=== PATIENT | female | born 1940 | race Two or more races ===

== ENCOUNTER 2016-07-15 23:54 | Emergency (ER) | payer MEDICARE, BC ==
[2016-07-16] MEDS ORDERED: DIPHENHYDRAMINE HCL 25 MG CAPSULE PO ONE (02:07)
[2016-07-16] MEDS ORDERED: FAMOTIDINE 20 MG TABLET PO ONE (02:07)
--- NOTE | 2016-07-16 02:13 | ER Document Report ---
ED General - General Mode of Arrival: Ambulatory Information source: Patient TRAVEL OUTSIDE OF THE [place] IN LAST 30 DAYS: No - HPI Patient complains to provider of: Generalized Body Pain and Facial Swelling Onset: This evening Associated symptoms: Other - see notes above <MARYLOU MCDONALD - Last Filed: 07/16/16 02:07> <SALO JOSHI - Last Filed: 07/16/16 03:34> - General Chief Complaint: Pain All Over Stated Complaint: WHOLE BODY PAIN Time Seen by Provider: 07/16/16 01:55 Notes: 75 year old female with history of diabetes, GERD, hyperlipidemia, and hypertension presents to the ED complaining of generalized body pain and facial swelling (cheek and periorbital) that started this evening (1900) after taking myrbetriq for the first time. Patient reports that symptoms started 1 hour after taking medication. Patient states that she feels like she is "dying", similar to when she had diphtheria as a child. Patient also reports shortness of breath and generalized tingling. (MARYLOU MCDONALD) - Related Data Allergies/Adverse Reactions: iodine [Iodine] Allergy (Severe, Verified 07/16/16 00:12) Hives fentanyl [Fentanyl] Allergy (Unknown, Verified 07/16/16 00:12) Penicillins Allergy (Verified 07/16/16 00:12) Past Medical History - General Information source: Patient - Social History Smoking Status: Unknown if Ever Smoked Chew tobacco use (# tins/day): No Frequency of alcohol use: None Drug Abuse: None Family History: Reviewed & Not Pertinent - Past Medical History Cardiac Medical History: Reports: Hx Hypercholesterolemia, Hx Hypertension Endocrine Medical History: Reports: Hx Diabetes Mellitus Type 2 Renal/ Medical History: Denies: Hx Peritoneal Dialysis GI Medical History: Reports: Hx Gastroesophageal Reflux Disease Musculoskeltal Medical History: Reports Hx Arthritis Past Surgical History: Reports: Hx Cholecystectomy, Hx Hysterectomy - Immunizations Hx Diphtheria, Pertussis, Tetanus Vaccination: No <MARYLOU MCDONALD - Last Filed: 07/16/16 02:07> Review of Systems - Review of Systems Constitutional: See HPI, Other - generalized body pain EENT: See HPI, Other - periorbital and cheek facial swelling Cardiovascular: No symptoms reported Respiratory: See HPI, Short of breath Gastrointestinal: No symptoms reported Genitourinary: No symptoms reported Female Genitourinary: No symptoms reported Musculoskeletal: No symptoms reported Skin: No symptoms reported Hematologic/Lymphatic: No symptoms reported Neurological/Psychological: See HPI, Tingling - generalized -: Yes All other systems reviewed and negative <MARYLOU MCDONALD - Last Filed: 07/16/16 02:07> Physical Exam - General General appearance: Alert In distress: None - HEENT Head: Normocephalic, Atraumatic Eyes: Periorbital edema. No: Normal Extraocular movements intact: Yes Pupils: PERRL - Respiratory Respiratory status: No respiratory distress Breath sounds: Normal - Cardiovascular Rhythm: Regular Heart sounds: Normal auscultation - Abdominal Inspection: Normal Distension: No distension Tenderness: Nontender - Back Back: Normal - Extremities General upper extremity: Normal inspection, Normal ROM General lower extremity: Normal inspection, Normal ROM, Other - Bilateral legs were puffy, but did not pit. - Neurological Neuro grossly intact: Yes - Psychological Associated symptoms: Normal affect, Normal mood - Skin Skin Temperature: Warm Skin Moisture: Dry Skin Color: Normal <MARYLOU MCDONALD - Last Filed: 07/16/16 02:07> - HEENT Conjunctiva: Normal Mouth/Lips: Normal. No: Angioedema Mucous membranes: Normal Neck: Normal <SALO JOSHI - Last Filed: 07/16/16 03:34> - Vital signs Vitals: Temp Pulse Resp BP Pulse Ox 98.7 F 80 20 132/73 H 96 07/16/16 00:12 07/16/16 00:12 07/16/16 00:12 07/16/16 00:12 07/16/16 00:12 Course <MARYLOU MCDONALD - Last Filed: 07/16/16 02:07> - Laboratory Result Diagrams: 07/16/16 02:25 07/16/16 02:25 <SALO JOSHI - Last Filed: 07/16/16 03:34> - Re-evaluation Re-evalutation: 07/16/16 03:31 Patient feels much better at this time, the swelling in the periorbital and malar area of her face appears to be a little bit better. (SALO JOSHI) - Vital Signs Vital signs: Temp Pulse Resp BP Pulse Ox 98.7 F 80 20 132/73 H 96 07/16/16 00:59 07/16/16 00:59 07/16/16 00:59 07/16/16 00:59 07/16/16 00:59 - Laboratory Laboratory results interpreted by me: 07/16/16 07/16/16 07/16/16 02:25 02:25 02:30 Hgb 11.8 L Hct 35.8 L Sodium 133.7 L Chloride 95 L Calcium 10.7 H Urine Ascorbic Acid 40 H Discharge <MARYLOU MCDONALD - Last Filed: 07/16/16 02:07> <SALO JOSHI - Last Filed: 07/16/16 03:34> - Discharge Clinical Impression: Allergic reaction caused by a drug Qualifiers: Encounter type: initial encounter Qualified Code(s): T78.40XA - Allergy, unspecified, initial encounter Condition: Stable Disposition: HOME, SELF-CARE Additional Instructions: Acute Allergic Reaction to Drugs: Your symptoms are due to an allergic reaction. The physician feels that a medication you've taken MAY be responsible. Medication allergy can cause hives , swelling of the hands, feet and face, hoarseness, and difficulty swallowing or breathing. This type of allergy can also be caused by animal dander, foods, infection, or insect bites. Medication can cause allergy even when prior use of this same medication caused no problems. Emergency treatment may include adrenalin and antihistamines. Home treatment includes the following: (1) Stop the suspected medication. (2) Oral antihistamines for the next four to five days (Benadryl). (3) Avoid aspirin until the hives completely disappear. (4) Avoid hot baths or showers until the hives are completely gone. Call the doctor if faintness, difficulty swallowing, tightness in the chest or wheezing occurs. FOLLOW UP WITH YOUR DOCTOR TO DISCUSS ALTERNATIVES TO THE MYRBETRIQ. RETURN TO THE EMERGENCY ROOM IF ANY NEW OR WORSENING SYMPTOMS. Scribe Attestation: 07/16/16 03:34 I personally performed the services described in the documentation, reviewed and edited the documentation which was dictated to the scribe in my presence, and it accurately records my words and actions. (SALO JOSHI) Scribe Documentation - Scribe Written by Virginiee:: Darien Heller, 07/16/2016 0212 acting as scribe for :: Viviana <MARYLOU MCDONALD - Last Filed: 07/16/16 02:07>
[2016-07-16 02:36] LABS: ABSOLUTE BASOPHILS # (AUTO) 0.1 10^3/uL (0.0-0.2); ABSOLUTE EOSINOPHILS # (AUTO) 0.1 10^3/uL (0.0-0.6); ABSOLUTE LYMPHOCYTES (AUTO) 2.3 10^3/uL (0.5-4.7); ABSOLUTE MONOCYTES (AUTO) 0.4 10^3/uL (0.1-1.4); ABSOLUTE NEUT (AUTO) 3.5 10^3/uL (1.7-8.2); EOSINOPHILS % (AUTO) 1.7 % (0-6); HEMATOCRIT 35.8 % (36.0-47.0); HEMOGLOBIN 11.8 g/dL (12.0-15.5); HGB HCT DIFFERENCE -0.4; LYMPHOCYTES % (AUTO) 35.8 % (13-45); MEAN CORPUSCULAR HEMOGLOBIN 29.3 pg (27.0-33.4); MEAN CORPUSCULAR HGB CONC 32.8 g/dL (32.0-36.0); MEAN CORPUSCULAR VOLUME 89 fl (80-97); MONOCYTES % (AUTO) 6.3 % (3-13); RED BLOOD COUNT 4.02 10^6/uL (3.72-5.28); RED CELL DISTRIBUTION WIDTH 13.8 % (11.5-14.0); SEGMENTED NEUTROPHILS % (AUTO) 55.2 % (42-78); WHITE BLOOD COUNT 6.3 10^3/uL (4.0-10.5)
[2016-07-16 02:52] LABS: ALANINE AMINOTRANSFERASE 25 U/L (9-52); ALKALINE PHOSPHATASE 86 U/L (38-126); ANION GAP 10 (5-19); ASPARTATE AMINO TRANSFERASE 17 U/L (14-36); BILIRUBIN,DIRECT 0.4 mg/dL (0.0-0.4); BILIRUBIN,TOTAL 0.9 mg/dL (0.2-1.3); BLOOD UREA NITROGEN 19 mg/dL (7-20); CALCIUM 10.7 mg/dL (8.4-10.2); CARBON DIOXIDE 29 mmol/L (22-30); CHLORIDE 95 mmol/L (98-107); CREATINE KINASE 50 U/L (30-135); CREATININE RESULT 0.72 mg/dL (0.52-1.25); GLUCOSE 107 mg/dL (75-110); POTASSIUM 4.2 mmol/L (3.6-5.0); SODIUM 133.7 mmol/L (137-145); TOTAL PROTEIN 6.4 g/dL (6.3-8.2)
[2016-07-16 02:53] LABS: APPEARANCE,URINE CLEAR; BILIRUBIN,URINE NEGATIVE (NEGATIVE); GLUCOSE, URINE NEGATIVE (NEGATIVE); KETONES,URINE NEGATIVE (NEGATIVE); LEUKOCYTE ESTERASE,URINE NEGATIVE (NEGATIVE); NITRITE,URINE NEGATIVE (NEGATIVE); PROTEIN,URINE NEGATIVE (NEGATIVE); URINE SPECIFIC GRAVITY 1.005; UROBILINOGEN,URINE NEGATIVE mg/dL (<2.0)
[2016-07-16 03:04] LABS: CREATINE KINASE MB 0.64 ng/mL (<4.55)
[2016-07-16 03:05] LABS: TROPONIN I < 0.012 ng/mL
[2016-07-16 03:53] VITALS: BP 139/85
== END 2016-07-16 03:52 | disposition home or self-care (01) ==
LOC: ER 23:54
DX: T78.40XA Allergy, unspecified, initial encounter (principal); R52 Pain, unspecified; E11.9 Type 2 diabetes mellitus without complications; K21.9 Gastro-esophageal reflux disease without esophagitis; E78.5 Hyperlipidemia, unspecified; I10 Essential (primary) hypertension; R06.02 Shortness of breath
CPT/HCPCS: 99283; 36415; 82553; 82550; 85025; 80053; 81001; 84484; A9270 ×2